=== PATIENT | female | born 1945 | race African-American/Black ===

== ENCOUNTER 2021-08-28 11:28 | Inpatient (IN) | payer MEDICAID, OTHER ==
[~2021-08-28] VITALS: Ht 170.2 cm; Wt 102.1 kg
[2021-08-28 12:04] LABS: HEMATOCRIT. 45.9 % (36.0-48.0); HEMOGLOBIN. 14.9 g/dL (12.0-16.0); MEAN CORPUSCULAR HEMOGLOBIN 30.5 pg (28.0-32.0); MEAN CORPUSCULAR VOLUME 93.6 fL (81.0-99.0); PLATELET 200 x1000/uL (130-400); RED BLOOD CELL COUNT 4.91 mill/uL (4.2-5.4); RED CELL DISTRIBUTION WIDTH 15.2 % (11.6-14.6)
[2021-08-28 12:09] LABS: CHLORIDE 105 mEq/L (98-107)
[2021-08-28 12:12] LABS: INR 0.9; PROTHROMBIN TIME 10.2 sec (9.6-11.0)
[2021-08-28 12:13] LABS: ETHANOL BLOOD < 10 mg/dL
[2021-08-28] MEDS ORDERED: ASPIRIN 325MG EC TABLET PO NR (12:15)
[2021-08-28 12:16] LABS: LDL CHOLESTEROL 49 mg/dL (5-100)
[2021-08-28] MEDS ORDERED: SODIUM CHLORIDE 0.9% 1,000 ML IV ONE (12:30)
[2021-08-28] MEDS ORDERED: INSULIN REGULAR (HUMULIN R) 300UNITS/3ML VIAL SUBCUT SCH (13:00)
[2021-08-28 13:02] LABS: BG BASE EXCESS -5.5 mmol/L (-2.0-2.0); BG CARBOXYHEMOGLOBIN 0.6 % (0.5-1.5); BG DEOXYHEMOGLOBIN 5.2 % (0.0-5.0); BG FRACTION INSPIRED OXYGEN 21; BG HCO3 ACT 19.3 mmol/L (22.0-26.0); BG METHEMOGLOBIN 0.1 % (0.0-1.5); BG OXYGEN SATURATION 94.8 % (92.0-98.5); BG OXYHEMOGLOBIN 94.1 % (94.0-97.0); BG PCO2 35.8 mmHg (35.0-45.0); BG PO2 73.1 mmHg (75.0-100.0); BG SAMPLE SITE RIGHT RADIAL; BG TOTAL HEMOGLOBIN 15.3 g/dL (12.0-18.0); BG VENT MODE ROOM AIR
[2021-08-28 13:03] LABS: PLATELET ESTIMATE NORMAL
[2021-08-28] MEDS ORDERED: INSULIN REGULAR (DRIP) 100 UNITS in SODIUM CHLORIDE 0.9% 99 ML IV SCH ×2 (14:00→14:15)
[2021-08-28] MEDS ORDERED: IPRATROPIUM/ALBUTEROL 0.5-3(2.5)MG/3ML NEB NEB PRN (15:00)
[2021-08-28] MEDS ORDERED: ONDANSETRON HCL 4MG/2ML INJ IV PRN (15:00)
[2021-08-28] MEDS ORDERED: MAGNESIUM/ALUMINUM HYDROXIDE/SIMETHICONE 30ML UDC PO PRN (15:00)
[2021-08-28] MEDS ORDERED: NITROGLYCERIN 0.4MG TABLET SL SL PRN (15:00)
[2021-08-28] MEDS ORDERED: CLONIDINE 0.1MG TABLET PO PRN (15:00)
[2021-08-28] MEDS ORDERED: ZOLPIDEM TARTRATE 5MG TABLET PO PRN (15:00)
[2021-08-28] MEDS ORDERED: KETOROLAC 15MG/ML VIAL IV PRN (15:00)
[2021-08-28] MEDS ORDERED: GUAIFENESIN 200MG/10ML SUGAR FREE UDC PO PRN (15:00)
[2021-08-28] MEDS ORDERED: LEVOFLOXACIN 500MG PREMIX 100 ML IV SCH ×2 (15:00→15:15)
[2021-08-28] MEDS ORDERED: DEXTROSE 50% WATER 50ML SYRINGE IV PRN (15:00)
[2021-08-28] MEDS ORDERED: ACETAMINOPHEN 325MG TABLET PO PRN ×2 (15:00)
[2021-08-28] MEDS ORDERED: DOCUSATE SODIUM 100MG CAPSULE PO PRN (15:00)
[2021-08-28 15:40] LABS: T4 FREE 1.48 ng/dL (0.76-1.46)
[2021-08-28] MEDS ORDERED: INSULIN GLARGINE UD 100 UNITS/ML SYR SUBCUT SCH (16:00)
[2021-08-28 16:42] LABS: FOLIC ACID (FOLATE) SERUM 5.4 ng/mL (>5.38)
[2021-08-28] MEDS: BLOOD SUGAR DIAGNOSTIC STRIP TEST SCH ×2 (17:00→21:00)
[2021-08-28 17:45] VITALS: BP 142/82
[2021-08-28] MEDS ORDERED: CEFTRIAXONE 1 G PREMIX 50 ML IV NR (18:00)
[2021-08-28] MEDS: INSULIN LISPRO 100 UNITS/ML SUBCUT SCH ×2 (18:20→22:00)
[2021-08-28] MEDS: ENOXAPARIN 40MG/0.4ML SYR SUBCUT SCH (18:49)
[2021-08-28 20:00] VITALS: BP 123/62
[2021-08-28] MEDS: SODIUM CHLORIDE 0.9% 1,000 ML IV SCH (21:21)
[2021-08-28 22:00] VITALS: BP 148/74
[2021-08-28] MEDS: ASCORBIC ACID 500 MG TABLET PO SCH (22:00)
[2021-08-28] MEDS: ATORVASTATIN CALCIUM 40MG TABLET PO SCH (22:01)
[2021-08-28 22:07] LABS: CLARITY URINE CLEAR (CLEAR); COLOR URINE YELLOW (YELLOW); KETONES URINE TRACE (NEGATIVE); LEUKOCYTE ESTERASE URINE NEGATIVE (NEGATIVE); NITRITE URINE NEGATIVE (NEGATIVE); OCCULT BLOOD URINE TRACE (NEGATIVE); PROTEIN URINE 1+ (NEGATIVE); SPECIFIC GRAVITY URINE 1.024 (1.005-1.030); UROBILINOGEN URINE 0.2 E.U./dL (0.2-1.0)
[2021-08-28 22:23] LABS: *AMPHETAMINES SCREEN URINE NEGATIVE (NEGATIVE); *BARBITURATES SCREEN URINE NEGATIVE (NEGATIVE); *BENZODIAZEPINES SCREEN URINE NEGATIVE (NEGATIVE); *COCAINE SCREEN URINE NEGATIVE (NEGATIVE); METHADONE URINE SCREEN NEGATIVE (NEGATIVE); OPIATES URINE SCREEN NEGATIVE (NEGATIVE)
[2021-08-28 22:24] LABS: CANNABINOID URINE SCREEN NEGATIVE (NEGATIVE); PHENCYCLIDINE URINE SCREEN NEGATIVE (NEGATIVE)
[2021-08-29] VITALS (12 sets, daily range): BP systolic 128–152; BP diastolic 70–96
[2021-08-29 00:09] LABS: CREATINE KINASE MB FRACTION 3.6 ng/mL (0.5-3.6)
[2021-08-29] MEDS: CEFTRIAXONE 1,000 MG in DEXTROSE 5% WATER 50 ML IV SCH ×2 (00:37→22:45)
[2021-08-29 04:59] LABS: HEMATOCRIT. 44.7 % (36.0-48.0); HEMOGLOBIN. 14.6 g/dL (12.0-16.0); MEAN CORPUSCULAR HEMOGLOBIN 30.2 pg (28.0-32.0); MEAN CORPUSCULAR VOLUME 92.5 fL (81.0-99.0); MEAN PLATELET VOLUME 10.3 fl (7.4-10.4); PLATELET 166 x1000/uL (130-400); RED BLOOD CELL COUNT 4.83 mill/uL (4.2-5.4)
[2021-08-29 05:02] LABS: CHLORIDE 111 mEq/L (98-107)
[2021-08-29 05:11] LABS: PHOSPHORUS 2.4 mg/dL (2.5-4.9)
[2021-08-29 05:14] LABS: CREATINE KINASE 86 IU/L (26-192)
[2021-08-29 05:16] LABS: CREATINE KINASE MB FRACTION 2.8 ng/mL (0.5-3.6)
[2021-08-29] MEDS: FAMOTIDINE 20MG TABLET PO SCH (06:06)
[2021-08-29] MEDS ORDERED: LOSA50TA41 MT (06:12)
[2021-08-29] MEDS ORDERED: ROSU5TAB MT (06:12)
[2021-08-29] MEDS ORDERED: GLIP5TAB12 MT (06:12)
[2021-08-29] MEDS ORDERED: AMLO10TA80 MT (06:12)
[2021-08-29] MEDS ORDERED: LEVO137T2 MT (06:14)
[2021-08-29] MEDS: BLOOD SUGAR DIAGNOSTIC STRIP TEST SCH ×4 (07:30→21:00)
[2021-08-29] MEDS: INSULIN LISPRO 100 UNITS/ML SUBCUT SCH ×10 (07:30→21:06)
[2021-08-29] MEDS: SODIUM CHLORIDE 0.9% 1,000 ML IV SCH ×3 (07:42→21:07)
[2021-08-29] MEDS: CHOLECALCIFEROL (D3) 1000 UNIT TABLET PO SCH (09:00)
[2021-08-29] MEDS: ZINC SULFATE 220 MG ( 50 ) CAPSULE PO SCH (09:01)
[2021-08-29] MEDS: ASCORBIC ACID 500 MG TABLET PO SCH ×2 (09:01→21:00)
[2021-08-29] MEDS: ASPIRIN 325MG EC TABLET PO SCH (09:01)
[2021-08-29 11:31] LABS: PLATELET ESTIMATE NORMAL
[2021-08-29] MEDS: INSULIN GLARGINE UD 100 UNITS/ML SYR SUBCUT SCH (14:11)
[2021-08-29] MEDS: LEVOFLOXACIN 250MG PREMIX 50 ML IV SCH (15:35)
[2021-08-29] MEDS: ENOXAPARIN 40MG/0.4ML SYR SUBCUT SCH (15:35)
[2021-08-29] MEDS: ATORVASTATIN CALCIUM 40MG TABLET PO SCH (20:56)
[2021-08-30] VITALS (13 sets, daily range): BP systolic 116–159; BP diastolic 54–93
[2021-08-30] MEDS: FAMOTIDINE 20MG TABLET PO SCH (06:10)
[2021-08-30] MEDS: SODIUM CHLORIDE 0.9% 1,000 ML IV SCH ×2 (06:16→17:58)
[2021-08-30] MEDS: INSULIN LISPRO 100 UNITS/ML SUBCUT SCH ×7 (07:30→21:14)
[2021-08-30] MEDS: BLOOD SUGAR DIAGNOSTIC STRIP TEST SCH ×4 (07:30→21:02)
[2021-08-30 07:47] LABS: BASOPHILS % 0.1 % (0.0-2.0); EOSINOPHILS % 0.1 % (0.0-5.0); HEMATOCRIT. 38.5 % (36.0-48.0); HEMOGLOBIN. 12.7 g/dL (12.0-16.0); LYMPHOCYTES % 9.6 % (20.0-50.0); MEAN CORPUSCULAR HEMOGLOBIN 30.2 pg (28.0-32.0); MEAN CORPUSCULAR VOLUME 91.6 fL (81.0-99.0); MEAN PLATELET VOLUME 10.3 fl (7.4-10.4); MONOCYTES % 6.9 % (2.0-8.0); NEUTROPHILS % 83.3 % (40.0-76.0); PLATELET 150 x1000/uL (130-400); RED CELL DISTRIBUTION WIDTH 15.1 % (11.6-14.6)
[2021-08-30] MEDS: CHOLECALCIFEROL (D3) 1000 UNIT TABLET PO SCH (09:55)
[2021-08-30] MEDS: ASCORBIC ACID 500 MG TABLET PO SCH ×2 (09:55→21:01)
[2021-08-30] MEDS: ASPIRIN 325MG EC TABLET PO SCH (09:55)
[2021-08-30] MEDS: ZINC SULFATE 220 MG ( 50 ) CAPSULE PO SCH (09:55)
[2021-08-30] MEDS: INSULIN GLARGINE UD 100 UNITS/ML SYR SUBCUT SCH (10:02)
[2021-08-30] MEDS: ENOXAPARIN 40MG/0.4ML SYR SUBCUT SCH (16:31)
[2021-08-30] MEDS: LEVOFLOXACIN 250MG PREMIX 50 ML IV SCH (16:31)
[2021-08-30] MEDS ORDERED: ATORVASTATIN CALCIUM 40MG TABLET PO SCH (21:00)
[2021-08-30] MEDS: CEFTRIAXONE 1,000 MG in DEXTROSE 5% WATER 50 ML IV SCH (23:16)
== END 2021-08-31 05:43 | disposition short-term general hospital (02) | DRG 871 ==
LOC: ER 11:28 → 5EST 14:01 → EDBEDREQTM 14:06 → EDBEDREQ 14:06 → EDBEDREQSVC 14:06 → SUPCPDRO 14:48 → EDBEDREQSVC 14:52 → EDBEDREQTM 14:52 → ENRESERV 15:07
PROVIDERS: ADMIT Internal Medicine; ATTEND Internal Medicine
DX: A41.9 Sepsis, unspecified organism (principal); E11.00 Type 2 diabetes mellitus with hyperosmolarity without nonketotic hyperglycemic-hyperosmolar coma (NKHHC); G92 Toxic encephalopathy; N17.0 Acute kidney failure with tubular necrosis; E44.1 Mild protein-calorie malnutrition; E11.65 Type 2 diabetes mellitus with hyperglycemia; I10 Essential (primary) hypertension; R65.20 Severe sepsis without septic shock; Z20.822 Contact with and (suspected) exposure to COVID-19; G93.89 Other specified disorders of brain; R47.81 Slurred speech; Z68.35 Body mass index [BMI] 35.0-35.9, adult; Z79.899 Other long term (current) drug therapy; Z86.73 Personal history of transient ischemic attack (TIA), and cerebral infarction without residual deficits
CPT/HCPCS: 36415; 36600; 71045; 80048; 80053; 80061; 80305; 80320; 81003; 82375; 82550; 82553; 82607; 82728; 82746; 82805; 82962; 83036; 83540; 83550; 83605; 83615; 83721; 83735; 83930; 83935; 84100; 84145; 84439; 84443; 84484; 85025; 85379; 87077; 87186; 87426; 93005; 93306; 93970; 99291; J0696; J1650; J1815; J1956; J7030; J7050; J7060; G0480